=== PATIENT | female | born 1955 | race Caucasian/White ===

== ENCOUNTER → 2024-12-11 | Outpatient (CLI) | payer MEDICARE, BC ==
--- NOTE | 2024-12-12 09:30 | CONSULTATION ---
DATE OF CONSULTATION: 12/11/2024 DICTATING PHYSICIAN: Helga Flores M.S., [facility]-CONTINUOUS PROCESS [facility] MODIFIED BARIUM SWALLOW STUDY REFERRING PHYSICIAN: Moni Collins MD HISTORY OF PRESENT ILLNESS: The patient is a 69-year-old female who consents to this evaluation. History was obtained from the patient and medical records. The patient has a diagnosis of Parkinson's disease, which was diagnosed about 3 years ago. She noted symptoms of dysphagia that had started intermittently about 3 years ago, but have become more consistent in the past year. She notes that her first difficulty was with watermelon in which the watermelon would start to feel stuck in her throat. She then started having difficulty with gagging on pills and food getting stuck in her throat. She noted that water would help make the food go down through her throat, but the pills would continue to stick. She notes that she has to clear her throat all the time. She has not had any prior speech therapy or swallowing studies. CURRENT DIET: In terms of caffeine, the patient has one cup of dosed coffee daily basis. She does not utilize tobacco products. She very rarely has alcohol, maybe 5 times a year. She has chocolate 1-2 times weekly with dairy products. The patient has ice cream on a daily and she is on casserole. A typical breakfast consists of eggs and toast, oatmeal, or truffles. Lunch, she may not have at all or if she does have lunch, she will have a half sandwich of peanut butter and jelly or tuna. She snacks in the afternoon on watermelon. Dinner is eaten between 5:00 and 6:00 p.m. and maybe chicken or fish with rice. She has ice cream between 6:00 and 7:00 p.m. and goes to bed between 7:00 and 8:00 p.m. MEDICATIONS: Carbidopa/levodopa 25/100 two tablets twice daily orally. PARAMETERS: The patient is seated in a lateral 90-degree view and administered the usual protocol of thin and nitrous thick liquids, purely in solid consistencies with self-regulated boluses of thin liquids from the cup. RESULTS: In the oral stage of the swallow, lingual strength is mildly reduced. There is a mild to moderate oral residue following the initial swallow of boluses in the pharyngeal stage of the swallow. Tongue base retraction is mild to moderately reduced. Swallow initiation is delayed to the level of the vallecula. Anterior movement of the posterior pharyngeal wall was observed. Elevation of the hyothyroid complex was accomplished with full range of motion. After the tail of the bolus passes, there is a mild to moderate pharyngeal residue for the larger bolus sizes and PES opening was within functional limits. At no time is the patient noted to penetrate or aspirate on any of the bolus sizes or consistency. ANTERIOR, POSTERIOR VIEW: In the AP plane, the bolus split symmetrically between the piriform sinuses and there is proximal movement of the bolus to the level of the mid sternum. It should also be noted that in the lateral view that bolus would stick below the level of the PES opening, especially with the puree bolus. IMPRESSION: The patient demonstrates what appears to be a moderate frankly esophageal phase following disorder characterized by reduced tongue base retraction and proximal movement of the boluses in the AP view. DIAGNOSES: R13.14, dysphagia pharyngoesophageal phase, G20 Parkinson's disease. PATIENT EDUCATION: Immediately following modified barium swallow study, the patient was able to view the results. The patient was able to see how the current status of the oral motor and swallowing mechanism decreases her ability to swallow normally. She was educated on a recommendation for speech therapy to strengthen the muscles involved in swallowing and agreed to participate at this time. She was also educated on laryngopharyngeal dietary modifications for laryngopharyngeal reflux disease. RECOMMENDATIONS: * It is recommended, the patient receive swallowing therapy one time weekly for 12 weeks to improve the strength and range of motion of the oral motor and swallowing mechanism to ensure airway safety protection and prevent aspiration. * It is recommended the patient follow dietary modifications for laryngopharyngeal reflux disease. LONG-TERM GOALS: The patient will maintain adequate hydration/nutrition with optimum safety and efficiency of swallow function on p.o. intake without overt signs and symptoms of aspiration for the highest possible diet level. PROGNOSIS: The prognosis for the patient is good in terms of willingness to learn and patient motivation. FUNCTIONAL ORAL INTAKE: FOIS was administered to establish and document a change in the functional eating activities of this patient over time. This is a 7-point scale with 1 indicating no oral intake and totally tip dependent and 7 indicating total oral intake with no restrictions. This patient received a 6 which indicates she has a total oral diet with multiple consistencies without special preparation but with specific food limitations and precautions. G-CODE: [id number]. Thank you very much for asking me to participate in the care of this kind patient. Should you have any questions regarding this evaluation or recommendations, please do not hesitate to contact me at [phone]. During this examination, 3 minutes and 26 seconds of fluoroscopy time and 10.42 CAK mGy were utilized. Helga Flores M.S., [facility]-CONTINUOUS PROCESS [facility] [employer] TID: [id number] RECEIPT: [id number] MD/[facility]
== END | disposition home or self-care (01) ==
LOC: RAD 09:57
PROVIDERS: ATTEND Family Medicine
DX: R13.14 Dysphagia, pharyngoesophageal phase (principal); G20.A1 Parkinson's disease without dyskinesia, without mention of fluctuations
CPT/HCPCS: 74230